=== PATIENT | male | born 1995 | race Caucasian/White ===

== ENCOUNTER 2016-10-08 17:16 | Emergency (ER) | payer SELFPAY ==
[~2016-10-08] VITALS: Ht 170.2 cm; Wt 122.5 kg
[~2016-10-08 17:16] MED LIST: AMPH20CA3 PO
[2016-10-08] MEDS ORDERED: IBUPROFEN 800 MG (MOTRIN) TAB PO ONE ×2 (18:03→18:15)
--- NOTE | 2016-10-08 18:15 | ED Fever ---
History of Present Illness General Stated Complaint: HEADACHE/COUGH/SORE THROAT Source: patient Exam Limitations: no limitations History of Present Illness Time seen by provider: 18:09 Initial Comments To ER with today being the third day of runny nose, sore throat, headache, fever and cough. Timing/Duration: getting worse Fever Quality: greater than 102 F Associated Symptoms: headache Allergies and Home Medications Allergies Coded Allergies: No Known Drug Allergies (Unverified , 03/22/11) Home Medications No Active Prescriptions or Reported Meds Constitutional: see HPI EENTM: see HPI Respiratory: no symptoms reported Cardiovascular: no symptoms reported Genitourinary: no symptoms reported Musculoskeletal: no symptoms reported Skin: no symptoms reported Psychiatric/Neurological: No Symptoms Reported Hematologic/Lymphatic: No Symptoms Reported Past Htszlkv-Usnnfy-Adnemh Hx Patient Social History Recent Foreign Travel: No Contact w/Someone Who Travel: No Physical Exam Vital Signs Vital Sign - Last 12Hours 10/08/16 18:00 Temp 103.4 Pulse 148 B/P 122/72 Pulse Ox 99 O2 Flow Rate 99 Capillary Refill : General Appearance: WD/WN no apparent distress Eyes: Bilateral Eye EOMI, Bilateral Eye Normal Inspection, Bilateral Eye PERRL HEENT: PERRL/EOMI normal ENT inspection TM abnormal (R) (red) pharyngeal erythema Neck: non-tender Respiratory: lungs clear normal breath sounds no respiratory distress no accessory muscle use Gastrointestinal: non tender soft Extremities: normal range of motion non-tender Neurologic/Psychiatric: alert normal mood/affect oriented x 3 Skin: normal color warm/dry Progress/Results/Core Measures Results/Orders Micro Results Microbiology 10/08/16 Influenza Types A,B Antigen (PAULA) - Final, Complete My Orders Orders-CHAR VIDAL APRN Influenza A And B Antigens (10/08/16 18:08) Ibuprofen Tablet (Motrin Tablet) (10/08/16 18:15) Ibuprofen Tablet (Motrin Tablet) (10/08/16 18:03) Medications Given in ED Current Medications Medications Dose Ordered Sig/Sharita Route Start Time Stop Time Status Last Admin Dose Admin Ibuprofen 800 mg ONCE ONCE PO 10/08/16 18:15 10/08/16 18:16 DC 10/08/16 18:15 800 MG Vital Signs/I&O Vital Sign - Last 12Hours 10/08/16 18:00 Temp 103.4 Pulse 148 B/P 122/72 Pulse Ox 99 O2 Flow Rate 99 Departure Impression Impression: Primary Impression: Influenza-like symptoms Disposition: 01 HOME, SELF-CARE Condition: Stable Departure-Patient Inst. Decision time for Depature: 18:16 Referrals: NO,LOCAL PHYSICIAN (PCP/Family) Primary Care Physician Patient Instructions: Flu Add. Discharge Instructions: 1. Tylenol and Motrin for aches and pains and fevers 2. Drink lots of liquids. Gatorade and water would be your best bet. Use over -the-counter cough and cold medications like NyQuil or DayQuil 3. Return to ER for any concerns Scripts No Active Prescriptions or Reported Meds Work/School Note: Work Release Form Date Seen in the Emergency Department: Oct 08, 2016 Return to Work: Oct 11, 2016 CHAR VIDAL APRN Oct 08, 2016 18:15
[2016-10-08 18:50] VITALS: BP 124/74
--- NOTE | 2016-10-08 18:53 | Diagnostic Imaging Report ---
INDICATION: Cough and shortness of breath x 2 days. EXAMINATION: Two views of the chest were obtained. COMPARISON: None. Baseline. FINDINGS: The lungs are well aerated. There are no infiltrates present. The heart is not enlarged. No pulmonary edema. No pneumothorax or pleural effusions. No bony abnormalities. IMPRESSION: Normal PA and lateral chest. Dictated by: Dictated on workstation # [id number]
== END 2016-10-08 18:50 | disposition home or self-care (01) ==
LOC: EDUNIT# 17:16 → ER 17:18
DX: J11.1 Influenza due to unidentified influenza virus with other respiratory manifestations (principal)
CPT/HCPCS: 71020; 87804; 99282

== ENCOUNTER 2016-11-09 16:42 | Emergency (ER) | payer SELFPAY ==
[~2016-11-09] VITALS: Ht 170.2 cm; Wt 95.3 kg
--- OUTSIDE RECORDS SUMMARY | 2016-11-09 16:48 | XMS REPORT | Continuity of Care Document ---
Author Author [facility] Organization [facility] Address Unknown Phone Unavailable Care Team Providers Care Canteen Operator Name Role Phone NO, LOCAL PHYSICIAN PCP Unavailable Insurance Providers Payer Name Policy Number Subscriber Name Relationship Self Pay Silas Multani 18 Self / Same As Patient Advance Directives Directive Response Recorded Date/Time Advance Directives No 10/08/16 6:00pm Health Care Power of Tag Stringer No 10/08/16 6:00pm Organ Donor Yes 10/08/16 6:00pm Resuscitation Status Full Code 10/08/16 6:00pm Chief Complaint and Reason for Visit Chief Complaint Cough/Cold/Flu Symptoms Reason for Visit Influenza-like symptoms Problems Active Problems Medical Problem Onset Date Status Influenza-like symptoms Unknown Acute Medications No known medications. Social History Social History Problem Response Recorded Date/Time Alcohol Use Denies Use 10/08/2016 6:00pm Recreational Drug Use No 10/08/2016 6:00pm Recent Foreign Travel No 10/08/2016 6:00pm Recent Infectious Disease Exposure No 10/08/2016 6:00pm Hospitalization with Isolation Denies 10/08/2016 6:00pm Smoking Status Never a Smoker 10/08/2016 6:00pm Recent Hopitalizations N PT STATES NO MEDICAL HX 10/08/2016 6:00pm Hospitalization with Isolation Denies 10/08/2016 6:00pm Query Response Start Date Stop Date Smoking Status Never a Smoker Hospital Discharge Instructions No hospital discharge instructions. Plan of Care Discharge Date 10/08/16 6:50pm Disposition 01 HOME, SELF-CARE Condition at Discharge Stable Instructions/Education Provided Flu Forms Provided Work Release Form Prescriptions See Medication Section Referrals NO,LOCAL PHYSICIAN - Primary Care Physician Additional Instructions/Education 1. Tylenol and Motrin for aches and pains and fevers 2. Drink lots of liquids. Gatorade and water would be your best bet. Use idad-iwl-qxbduve cough and cold medications like NyQuil or DayQuil 3. Return to ER for any concerns Functional Status No functional status results. Allergies, Adverse Reactions, Alerts No known allergies. Immunizations No immunization records. Vital Signs Acute Vital Signs Vital Response Date/Time Temperature (Fahrenheit) 103.4 degrees F (97.6 - 99.5) 10/08/2016 6:00pm Temperature (Calculated Celsius) 39.59964 degrees C (36.4 - 37.5) 10/08/2016 6:00pm Temperature Source Tympanic 10/08/2016 6:00pm Pulse Rate (adult) 148 bpm (60 - 90) 10/08/2016 6:00pm O2 Sat by Pulse Oximetry 99 % (88 - 100) 10/08/2016 6:00pm Blood Pressure 122/72 mm Hg 10/08/2016 6:00pm Blood Pressure Mean 89 mm Hg 10/08/2016 6:00pm Pain Numeric Pain Scale 3 10/08/2016 6:00pm Height (Feet) 5 feet 10/08/2016 6:00pm Height (Inches) 7 inches 10/08/2016 6:00pm Height (Calculated Centimeters) 170.841532 cm 10/08/2016 6:00pm Weight (Pounds) 270 pounds 10/08/2016 6:00pm Weight (Calculated Kilograms) 122.616343 kilograms 10/08/2016 6:00pm Capillary Refill Capillary Refill NONE 10/08/2016 6:00pm Height 5 ft 7 in Weight 270 lb Body Mass Index 42.3 kg/m^2 Results No known relevant diagnostic tests, laboratory data and/or discharge summary. Procedures No known history of procedures. Encounters Encounter Location Arrival/Admit Date Discharge/Depart Date Attending Provider Departed Emergency Room [facility] 10/08/16 5:18pm 10/08 6:50pm CHAR VIDAL APRN Recent Diagnosis
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
[2016-11-09] MEDS ORDERED: KETOROLAC 60 MG/2 ML VIAL IM ONE ×2 (17:30→17:49)
[2016-11-09] MEDS ORDERED: LIDOCAINE/EPI 1%-1:100,000 (XYLOCAINE) 20ML INJ ONE (17:30)
[2016-11-09] MEDS ORDERED: ORPHENADRINE 60 MG/2 ML (NORFLEX) AMP IM ONE (17:30)
[2016-11-09 17:46] LABS: BASOPHILS % (AUTO) 0 % (0-10); EOSINOPHILS # (AUTO) 0.1 10^3/uL (0.0-0.3); EOSINOPHILS % (AUTO) 2 % (0-10); LYMPHOCYTES # (AUTO) 0.7 X 10^3 (1.0-4.0); LYMPHOCYTES % (AUTO) 11 % (12-44); MEAN CORPUSCULAR HEMOGLOBIN 30 PG (25-34); MEAN CORPUSCULAR HGB CONC 35 G/DL (32-36); MEAN CORPUSCULAR VOLUME 86 FL (80-99); MEAN PLATELET VOLUME 9.4 FL (7.4-10.4); MONOCYTES # (AUTO) 0.8 X 10^3 (0.0-1.0); MONOCYTES % (AUTO) 12 % (0-12); NEUTROPHILS # (AUTO) 5.2 X 10^3 (1.8-7.8); NEUTROPHILS % (AUTO) 76 % (42-75); PLATELET COUNT 239 10^3/uL (130-400); RED BLOOD COUNT 5.13 10^6/uL (4.35-5.85); RED CELL DISTRIBUTION WIDTH 13.7 % (10.0-14.5); WHITE BLOOD COUNT 6.8 10^3/uL (4.3-11.0)
[2016-11-09 17:48] LABS: BILIRUBIN,URINE NEGATIVE (NEGATIVE); KETONES,URINE NEGATIVE (NEGATIVE); LEUKOCYTE ESTERASE ,URINE NEGATIVE (NEGATIVE); NITRITE,URINE NEGATIVE (NEGATIVE); PH,URINE 6 (5-9); PROTEIN,URINE NEGATIVE (NEGATIVE); UROBILINOGEN,URINE NORMAL (NORMAL)
[2016-11-09] MEDS ORDERED: LIDOCAINE/EPI 1%-1:100,000 (XYLOCAINE) 20ML ONE (17:50)
[2016-11-09] MEDS ORDERED: ORPHENADRINE 60 MG/2 ML (NORFLEX) AMP ONE (17:50)
[2016-11-09 17:58] LABS: SQUAMOUS EPITHELIAL CELL,UR 0-2 /HPF; WBC,URINE RARE /HPF
[2016-11-09] MEDS ORDERED: ACETAMINOPHEN 500 MG TAB (TYLENOL) PO ONE (18:00)
--- NOTE | 2016-11-09 18:08 | Diagnostic Imaging Report ---
PROCEDURE: CT lumbar spine without contrast. TECHNIQUE: Multiple contiguous axial images were obtained through the lumbar spine without the use of intravenous contrast. Sagittal and coronal reformations were then performed. INDICATION: Back pain after trauma COMPARISON: None available. FINDINGS: Lumbar spine is normal in alignment. Specifically, there is no traumatic subluxation. Intervertebral disc space heights are normal. Vertebral bodies are normal in height without compression deformity. Posterior elements are intact. Visualized portions of the retroperitoneum are unremarkable. Visible SI joints are normal. IMPRESSION: 1. Normal lumbar spine. Specifically, no acute fracture or traumatic subluxation. Dictated by: Dictated on workstation # [id number]
[2016-11-09] MEDS ORDERED: SULF1TAB35 PO (18:14)
[2016-11-09] MEDS ORDERED: METR500T PO (18:14)
[2016-11-09] MEDS ORDERED: HYDR-757 PO (18:14)
[2016-11-09] MEDS ORDERED: CLOT15CR4 TP (18:14)
[2016-11-09 18:15] VITALS: BP 132/90
== END 2016-11-09 18:40 | disposition home or self-care (01) ==
LOC: EDUNIT# 16:42 → ER 16:44
DX: L30.4 Erythema intertrigo (principal); S30.0XXA Contusion of lower back and pelvis, initial encounter; L05.01 Pilonidal cyst with abscess; R50.9 Fever, unspecified; W24.0XXA Contact with lifting devices, not elsewhere classified, initial encounter; Y92.59 Other trade areas as the place of occurrence of the external cause; Y99.0 Civilian activity done for income or pay
CPT/HCPCS: 10060; 36415; 72131; 81000; 85025; 87070; 87205; 87804; 96372

== ENCOUNTER 2017-03-12 16:10 | Emergency (ER) | payer SELFPAY ==
[~2017-03-12] VITALS: Ht 170.2 cm; Wt 121.1 kg
[~2017-03-12 16:10] MED LIST changes: +CLOT15CR4 TP; +HYDR-757 PO; +METR500T PO; +SULF1TAB35 PO
[2017-03-12] MEDS ORDERED: CIPR500T4 PO (16:56)
[2017-03-12] MEDS ORDERED: HYDR-3812 PO (16:56)
[2017-03-12] MEDS ORDERED: METR500T21 PO (16:56)
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
[2017-03-12 17:09] VITALS: BP 142/79
== END 2017-03-12 17:09 | disposition home or self-care (01) ==
LOC: EDUNIT# 16:10 → ER 16:12
DX: L02.31 Cutaneous abscess of buttock (principal)
CPT/HCPCS: 99282

== ENCOUNTER 2017-06-04 16:08 | Emergency (ER) | payer SELFPAY ==
[~2017-06-04] VITALS: Ht 170.2 cm; Wt 121.1 kg
[~2017-06-04 16:08] MED LIST changes: +CIPR500T4 PO; +HYDR-3812 PO; +METR500T21 PO
[2017-06-04 16:23] LABS: BASOPHILS % (AUTO) 0 % (0-10); EOSINOPHILS # (AUTO) 0.4 10^3/uL (0.0-0.3); EOSINOPHILS % (AUTO) 5 % (0-10); LYMPHOCYTES # (AUTO) 1.9 X 10^3 (1.0-4.0); LYMPHOCYTES % (AUTO) 25 % (12-44); MEAN CORPUSCULAR HEMOGLOBIN 30 PG (25-34); MEAN CORPUSCULAR HGB CONC 34 G/DL (32-36); MEAN CORPUSCULAR VOLUME 86 FL (80-99); MEAN PLATELET VOLUME 9.5 FL (7.4-10.4); MONOCYTES # (AUTO) 0.8 X 10^3 (0.0-1.0); MONOCYTES % (AUTO) 10 % (0-12); NEUTROPHILS # (AUTO) 4.6 X 10^3 (1.8-7.8); NEUTROPHILS % (AUTO) 60 % (42-75); PLATELET COUNT 296 10^3/uL (130-400); RED BLOOD COUNT 5.25 10^6/uL (4.35-5.85); RED CELL DISTRIBUTION WIDTH 13.1 % (10.0-14.5); WHITE BLOOD COUNT 7.7 10^3/uL (4.3-11.0)
[2017-06-04] MEDS ORDERED: ONDANSETRON 4 MG/2 ML (SDV) Z0FRAN IVP ONE (16:30)
[2017-06-04] MEDS ORDERED: NS IV 1000 ML 1,000 ML IV SCH (16:30)
--- NOTE | 2017-06-04 16:30 | ED GI ---
General Chief Complaint: Abdominal/GI Problems Stated Complaint: VOMITING Source of Information: Patient Exam Limitations: No Limitations History of Present Illness Time Seen By Provider: 16:29 Initial Comments To ER with reports of nausea vomiting and diarrhea since last night. Denies abdominal pain. Denies fevers or chills. He went to work today but had to leave early because of this nausea and vomiting. He also scheduled to work tonight again at 2 a.m. He states that his son who is a toddler is also getting over nausea vomiting and diarrhea. Timing/Duration: 12-24 Hours Severity/Quality: Moderate Location: Generalized Abdomen Activities at Onset: None Allergies and Home Medications Allergies Coded Allergies: No Known Drug Allergies (Unverified , 03/22/11) Home Medications Ciprofloxacin HCl 500 Mg Tablet, 500 MG PO BID, #20 Ref 0 Prescribed by: SINDHU COOK on 03/12/171655 Hydrocodone/Acetaminophen 1 Each Tablet, 1 EACH PO Q4H PRN for PAIN, #14 Ref 0 Prescribed by: SINDHU COOK on 03/12/171655 Metronidazole 500 Mg Tablet, 500 MG PO TID, #30 Ref 0 Prescribed by: SINDHU COOK on 03/12/171655 Review of Systems Constitutional: see HPI EENTM: No Symptoms Reported Respiratory: No Symptoms Reported Cardiovascular: No Symptoms Reported Gastrointestinal: See HPI, Abdominal Pain, Diarrhea, Nausea, Vomiting Genitourinary: No Symptoms Reported Musculoskeletal: no symptoms reported Skin: no symptoms reported Psychiatric/Neurological: No Symptoms Reported Endocrine: No Symptoms Reported Past Yqwnozt-Tmpfzx-Cqftkv Hx Patient Social History Recent Foreign Travel: No Contact w/Someone Who Travel: No Recent Hopitalizations: No (PT STATES NO MEDICAL HX) Seasonal Allergies Seasonal Allergies: No Surgeries History of Surgeries: No Respiratory History of Respiratory Disorde: No Cardiovascular History of Cardiac Disorders: No Neurological History of Neurological Disord: No Reproductive System Hx Reproductive Disorders: No Gastrointestinal History of Gastrointestinal Di: No Musculoskeletal History of Musculoskeletal Dis: No Endocrine History of Endocrine Disorders: No Cancer History of Cancer: No Psychosocial History of Psychiatric Problem: No Integumentary History of Skin or Integumenta: No Blood Transfusions History of Blood Disorders: No Family Medical History Significant Family History: No Pertinent Family Hx Physical Exam Vital Signs Capillary Refill : General Appearance: WD/WN, no apparent distress HEENT: PERRL/EOMI, normal ENT inspection Neck: non-tender, full range of motion Respiratory: normal breath sounds, no respiratory distress, no accessory muscle use Cardiovascular: regular rate, rhythm, no murmur Gastrointestinal: normal bowel sounds, non tender, soft Extremities: normal range of motion, non-tender, normal inspection Neurologic/Psychiatric: alert, normal mood/affect, oriented x 3 Skin: normal color, warm/dry Progress/Results/Core Measures Results/Orders Lab Results Laboratory Tests Test 06/04/17 16:18 06/04/17 16:41 Range/Units White Blood Count 7.7 4.3-11.0 10^3/uL Red Blood Count 5.25 4.35-5.85 10^6/uL Hemoglobin 15.6 13.3-17.7 G/DL Hematocrit 45 40-54 % Mean Corpuscular Volume 86 80-99 FL Mean Corpuscular Hemoglobin 30 25-34 PG Mean Corpuscular Hemoglobin Concent 34 32-36 G/DL Red Cell Distribution Width 13.1 10.0-14.5 % Platelet Count 296 130-400 10^3/uL Mean Platelet Volume 9.5 7.4-10.4 FL Neutrophils (%) (Auto) 60 42-75 % Lymphocytes (%) (Auto) 25 12-44 % Monocytes (%) (Auto) 10 0-12 % Eosinophils (%) (Auto) 5 0-10 % Basophils (%) (Auto) 0 0-10 % Neutrophils # (Auto) 4.6 1.8-7.8 X 10^3 Lymphocytes # (Auto) 1.9 1.0-4.0 X 10^3 Monocytes # (Auto) 0.8 0.0-1.0 X 10^3 Eosinophils # (Auto) 0.4 H 0.0-0.3 10^3/uL Basophils # (Auto) 0.0 0.0-0.1 10^3/uL Sodium Level 142 135-145 MMOL/L Potassium Level 3.5 L 3.6-5.0 MMOL/L Chloride Level 105 98-107 MMOL/L Carbon Dioxide Level 28 21-32 MMOL/L Anion Gap 9 5-14 MMOL/L Blood Urea Nitrogen 12 7-18 MG/DL Creatinine 0.90 0.60-1.30 MG/DL Estimat Glomerular Filtration Rate > 60 BUN/Creatinine Ratio 13 Glucose Level 84 70-105 MG/DL Calcium Level 9.1 8.5-10.1 MG/DL Total Bilirubin 0.5 0.1-1.0 MG/DL Aspartate Amino Transf (AST/SGOT) 23 5-34 U/L Alanine Aminotransferase (ALT/SGPT) 54 0-55 U/L Alkaline Phosphatase 101 40-136 U/L Total Protein 7.2 6.4-8.2 GM/DL Albumin 4.1 3.2-4.5 GM/DL Lipase 11 8-78 U/L Urine Color YELLOW Urine Clarity SLIGHTLY CLOUDY Urine pH 6 5-9 Urine Specific [place] 1.020 1.016-1.022 Urine Protein 1+ H NEGATIVE Urine Glucose (UA) NEGATIVE NEGATIVE Urine Ketones NEGATIVE NEGATIVE Urine Nitrite NEGATIVE NEGATIVE Urine Bilirubin NEGATIVE NEGATIVE Urine Urobilinogen 4 H NORMAL MG/DL Urine Leukocyte Esterase 1+ H NEGATIVE Urine RBC (Auto) NEGATIVE NEGATIVE Urine RBC NONE /HPF Urine WBC 2-5 /HPF Urine Squamous Epithelial Cells 2-5 /HPF Urine Crystals NONE /LPF Urine Bacteria NONE /HPF Urine Casts NONE /LPF Urine Mucus SMALL H /LPF Urine Culture Indicated NO My Orders Orders - CHAR VIDAL APRN Cbc With Automated Diff (06/04/17 16:12) Comprehensive Metabolic Panel (06/04/17 16:12) Lipase (06/04/17 16:12) Ua Culture If Indicated (06/04/17 16:12) Drug Screen Stat (Urine) (06/04/17 16:12) Saline Lock/Iv-Start (06/04/17 16:12) Ns Iv 1000 Ml (Sodium Chloride 0.9%) (06/04/17 16:30) Ondansetron Injection (Zofran Injectio (06/04/17 16:30) Medications Given in ED Current Medications Medications Dose Ordered Sig/Sharita Route Start Time Stop Time Status Last Admin Dose Admin Ondansetron HCl 4 mg ONCE ONCE IVP 06/04/17 16:30 06/04/17 16:31 DC 06/04/17 16:25 4 MG Departure Impression Impression: Primary Impression: Nausea vomiting and diarrhea Disposition: 01 HOME, SELF-CARE Condition: Stable Departure-Patient Inst. Decision time for Depature: 16:58 Referrals: JOSE ROBERTO RIVAS DO (PCP/Family) Primary Care Physician Patient Instructions: Nausea and Vomiting, Adult Add. Discharge Instructions: 1. Drink plenty of fluids to stay hydrated. 2. Nausea medication as needed 3. See her doctor next week All discharge instructions reviewed with patient and/or family. Voiced understanding. Scripts Ondansetron (Zofran Odt) 8 Mg Tab.rapdis 8 MG PO Q6H Y for NAUSEA/VOMITING-1ST LINE, #10 TAB Prov: CHAR VIDAL APRN 06/04/17 Work/School Note: Work Release Form Date Seen in the Emergency Department: Jun 04, 2017 Return to Work: Jun 06, 2017 CHAR VIDAL APRN Jun 04, 2017 16:30
[2017-06-04 16:42] LABS: ALANINE AMINOTRANSFERASE 54 U/L (0-55); ALBUMIN 4.1 GM/DL (3.2-4.5); ANION GAP 9 MMOL/L (5-14); ASPARTATE AMINO TRANSFERASE 23 U/L (5-34); BILIRUBIN,TOTAL 0.5 MG/DL (0.1-1.0); BLOOD UREA NITROGEN 12 MG/DL (7-18); BUN/CREATININE RATIO 13; CALCIUM 9.1 MG/DL (8.5-10.1); CARBON DIOXIDE 28 MMOL/L (21-32); CHLORIDE 105 MMOL/L (98-107); GFR ESTIMATED > 60; GLUCOSE 84 MG/DL (70-105); LIPASE 11 U/L (8-78); POTASSIUM 3.5 MMOL/L (3.6-5.0); SODIUM 142 MMOL/L (135-145); TOTAL PROTEIN 7.2 GM/DL (6.4-8.2)
[2017-06-04 16:48] LABS: BILIRUBIN,URINE NEGATIVE (NEGATIVE); KETONES,URINE NEGATIVE (NEGATIVE); LEUKOCYTE ESTERASE ,URINE 1+ (NEGATIVE); NITRITE,URINE NEGATIVE (NEGATIVE); PH,URINE 6 (5-9); PROTEIN,URINE 1+ (NEGATIVE); UROBILINOGEN,URINE 4 MG/DL (NORMAL)
[2017-06-04] MEDS ORDERED: ONDA8TAB9 PO (17:00)
[2017-06-04 17:20] VITALS: BP 116/74
== END 2017-06-04 17:20 | disposition home or self-care (01) ==
LOC: EDUNIT# 16:08 → ER 16:09
DX: R11.2 Nausea with vomiting, unspecified (principal); R19.7 Diarrhea, unspecified
CPT/HCPCS: 36415; 80053; 80306; 81000; 83690; 85025; 99282

== ENCOUNTER 2018-01-04 20:41 | Emergency (ER) | payer SELFPAY ==
[~2018-01-04] VITALS: Ht 170.2 cm; Wt 127.0 kg
[~2018-01-04 20:41] MED LIST changes: +ACHD5005 PO; -HYDR-3812 PO; +ONDA8TAB9 PO
--- NOTE | 2018-01-04 20:55 | ED Upper Extremity ---
General Chief Complaint: Upper Extremity Stated Complaint: R WRIST INJ Nursing Triage Note: Patient reports shutting R wrist back in door. Nursing Sepsis Screen: No Definite Risk Source: patient Exam Limitations: no limitations History of Present Illness Date Seen by Provider: Jan 04, 2018 Time Seen by Provider: 20:54 Initial Comments Ambulatory to ER with reports of pain to the right wrist after accidentally shutting it in his door at home. Onset: just prior to arrival Severity: moderate Pain/Injury Location: right wrist Method of Injury: direct blow Modifying Factors: Worse With Movement Allergies and Home Medications Allergies Coded Allergies: No Known Drug Allergies (Unverified , 03/22/11) Patient Home Medication List Home Medication List Reviewed: Yes Constitutional: see HPI EENTM: see HPI Respiratory: no symptoms reported Cardiovascular: no symptoms reported Genitourinary: no symptoms reported Musculoskeletal: see HPI Skin: no symptoms reported Psychiatric/Neurological: No Symptoms Reported Past Iizabca-Hgiqmz-Mevzvt Hx Patient Social History Alcohol Use: Denies Use Recreational Drug Use: No Recent Foreign Travel: No Contact w/Someone Who Travel: No Recent Infectious Disease Expo: No Recent Hopitalizations: No Physical Abuse: No Sexual Abuse: No Seasonal Allergies Seasonal Allergies: No Past Medical History Surgeries: No Respiratory: No Cardiac: No Neurological: No Reproductive Disorders: No Gastrointestinal: No Musculoskeletal: No Endocrine: No Cancer: No Psychosocial: No Nursing Suicide Risk Score: 0 Integumentary: No Blood Disorders: No Family Medical History No Pertinent Family Hx Physical Exam Vital Signs Vital Signs - First Documented 01/04/18 20:47 Temp 98.0 Pulse 93 Resp 20 B/P (MAP) 133/70 (91) Pulse Ox 97 Capillary Refill : Less Than 3 Seconds General Appearance: WD/WN, no apparent distress HEENT: PERRL/EOMI, normal ENT inspection Neck: non-tender, full range of motion Respiratory: normal breath sounds, no respiratory distress, no accessory muscle use Gastrointestinal: normal bowel sounds, non tender Shoulder: normal inspection, non-tender Elbow/Forearm: normal inspection, non-tender Wrist: Yes normal inspection, Yes normal ROM, Yes soft tissue tenderness ( Small amount of erythema to the volar aspect of the right wrist. No deformity or swelling or ecchymosis.) Neurologic/Psychiatric: alert, normal mood/affect, oriented x 3 Skin: normal color, warm/dry Progress/Results/Core Measures My Orders Orders - CHAR VIDAL APRN Wrist, Right, 3 Views Or More (01/04/18 20:52) Vital Signs/I&O 01/04/18 20:47 Temp 98.0 Pulse 93 Resp 20 B/P (MAP) 133/70 (91) Pulse Ox 97 Blood Pressure Mean: 91 Departure Impression Primary Impression: Contusion of wrist Disposition: 01 HOME, SELF-CARE Condition: Stable Departure-Patient Inst. Decision time for Depature: 20:55 Referrals: NO,LOCAL PHYSICIAN (PCP/Family) Primary Care Physician Patient Instructions: Contusion (DC) Add. Discharge Instructions: 1. Tylenol and Motrin for pain 2. Return here for any concerns 3. All discharge instructions reviewed with patient and/or family. Voiced understanding. CHAR VIDAL APRN Jan 04, 2018 20:55
--- NOTE | 2018-01-04 21:25 | Diagnostic Imaging Report ---
INDICATION: Right wrist injury FINDINGS: Three views of the right wrist show no fracture, dislocation or other acute abnormalities. IMPRESSION: Negative right wrist. Dictated by: Dictated on workstation # [id number]
[2018-01-04 21:29] VITALS: BP 133/70
== END 2018-01-04 21:29 | disposition home or self-care (01) ==
LOC: EDUNIT# 20:41 → ER 20:43
DX: S60.211A Contusion of right wrist, initial encounter (principal); W23.0XXA Caught, crushed, jammed, or pinched between moving objects, initial encounter; Y92.009 Unspecified place in unspecified non-institutional (private) residence as the place of occurrence of the external cause
CPT/HCPCS: 73110

== ENCOUNTER 2018-01-09 03:02 | Emergency (ER) | payer SELFPAY ==
[~2018-01-09] VITALS: Ht 170.2 cm; Wt 127.0 kg
[2018-01-09] MEDS ORDERED: RX-TRIMETH/SULFA. 160-800 MG (BACTRIM DS) TAB PPK#2 PO STA (03:24)
[2018-01-09] MEDS ORDERED: RX-NAPROXEN (NAPROSYN) 250 MG TAB PPK#4 PO STA (03:24)
[2018-01-09] MEDS ORDERED: SULF1TAB35 PO (03:27)
[2018-01-09] MEDS ORDERED: NAPR-915 PO (03:27)
--- NOTE | 2018-01-09 03:27 | ED Integumentary General ---
General Chief Complaint: Skin/Wound Problems Stated Complaint: CYST UNDER RT ARM PIT,PAINFUL Nursing Triage Note: AREA OF CONCERN RIGHT AXILLA. Source: patient, old records Exam Limitations: no limitations History of Present Illness Date Seen by Provider: Jan 09, 2018 Time Seen by Provider: 03:15 Initial Comments PT ARRIVES VIA POV C/O PAINFUL "LUMP" IN RIGHT ARMPIT X 1 WEEK STATES HE HAD TO LEAVE WORK TONIGHT BECAUSE IT WAS HURTING TO RAISE AND LOWER HIS ARMS--WORKS AT [employer]) NO DRAINAGE NO FEVER NO HISTORY OF SIMILAR, PER PT, BUT PER OLD RECORDS, PT HAS HAD ABSCESS ON BUTTOCK IN PAST Allergies and Home Medications Allergies Coded Allergies: No Known Drug Allergies (Unverified , 03/22/11) Home Medications Naproxen 500 Mg Tablet, 500 MG PO BID Prescribed by: SARAI SAMS on 01/09/18326 Sulfamethoxazole/Trimethoprim 1 Each Tablet, 1 EACH PO BID Prescribed by: SARAI SAMS on 01/09/18326 Patient Home Medication List Home Medication List Reviewed: Yes Constitutional: no symptoms reported Respiratory: no symptoms reported Cardiovascular: no symptoms reported Musculoskeletal: see HPI Skin: see HPI Psychiatric/Neurological: No Symptoms Reported Endocrine: No Symptoms Reported Hematologic/Lymphatic: No Symptoms Reported Past Spjanhw-Jyyzux-Ipwuyp Hx Patient Social History Alcohol Use: Denies Use Recreational Drug Use: No Smoking Status: Never a Smoker 2nd Hand Smoke Exposure: No Recent Foreign Travel: No Contact w/Someone Who Travel: No Recent Infectious Disease Expo: No Recent Hopitalizations: No Immunizations Up To Date Tetanus Booster (TDap): Unknown Seasonal Allergies Seasonal Allergies: No Past Medical History Surgeries: No Respiratory: No Cardiac: No Neurological: No Reproductive Disorders: No Genitourinary: No Gastrointestinal: No Musculoskeletal: No Endocrine: No HEENT: No Cancer: No Psychosocial: No Integumentary: Yes (ABSCESS ON BUTTOCK) Blood Disorders: No Family Medical History No Pertinent Family Hx Physical Exam Vital Signs Vital Signs - First Documented 01/09/18 03:05 Temp 98.2 Pulse 99 Resp 18 B/P (MAP) 148/91 (110) Pulse Ox 95 O2 Delivery Room Air Capillary Refill : Less Than 3 Seconds General Appearance: WD/WN, no apparent distress, obese, other (DOES NOT APPEAR TO BE IN ANY DISCOMFORT OR DISTRESS, FREELY MOVING RIGHT ARM ) Extremities: normal range of motion, normal capillary refill 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 NO ERYTHEMA, INDURATION, DRAINAGE, STREAKS OR WARMTH. NO AXILLARY ADENOPATHY OR OTHER LESIONS/NODULES/SKIN CHANGES. ) Progress/Results/Core Measures My Orders Orders - SARAI SAMS DO Rx-Trimeth/Sulfameth Ds Tab (Rx-Bactrim/ (01/09/18 03:24) Rx-Naproxen (Rx-Naprosyn) (01/09/18 03:24) Vital Signs/I&O 01/09/18 03:05 Temp 98.2 Pulse 99 Resp 18 B/P (MAP) 148/91 (110) Pulse Ox 95 O2 Delivery Room Air Blood Pressure Mean: 110 Departure Impression Primary Impression: Folliculitis of axilla Disposition: 01 HOME, SELF-CARE Condition: Stable Departure-Patient Inst. Referrals: JOSE ROBERTO RIVAS DO Patient Instructions: Folliculitis (DC) Add. Discharge Instructions: CLEAN AREA TWICE A DAY WITH ANTIBACTERIAL SOAP AND WATER, ALTERNATE ICE AND HEAT TO AREA AT 20 MINUTE INTERVALS DO NOT SQUEEZE, PICK AT OR POKE AREA FOLLOW UP WITH DR. RIVAS IN 3-4 DAYS IF NO BETTER All discharge instructions reviewed with patient and/or family. Voiced understanding. Scripts Naproxen (Naproxen) 500 Mg Tablet 500 MG PO BID, #20 TAB Prov: SARAI SAMS DO 01/09/18 Sulfamethoxazole/Trimethoprim (Bactrim Ds Tablet) 1 Each Tablet 1 EACH PO BID, #20 TAB Prov: SARAI SAMS DO 01/09/18 SARAI SAMS DO Jan 09, 2018 03:27
[2018-01-09 03:30] VITALS: BP 148/91
== END 2018-01-09 03:30 | disposition home or self-care (01) ==
LOC: EDUNIT# 03:02 → ER 03:05
DX: L73.9 Follicular disorder, unspecified (principal); Z87.2 Personal history of diseases of the skin and subcutaneous tissue
CPT/HCPCS: 99283

== ENCOUNTER 2018-04-09 14:18 | Emergency (ER) | payer OTHER ==
[~2018-04-09] VITALS: Ht 170.2 cm; Wt 127.0 kg
[~2018-04-09 14:18] MED LIST changes: +NAPR-915 PO
--- NOTE | 2018-04-09 15:24 | ED Upper Extremity ---
General Chief Complaint: Upper Extremity Stated Complaint: RT SHOULDER AND NECK PAIN Nursing Triage Note: AMB TO ROOM REPORTS WAS AT WORK A MONTH AGO PICKING UP PALLET WHEN HE STARTED HAVING PAIN IN L SHOLDER WITH RADIATION INTO NECK HAD NOT TAKEN ANY OTC PAIN MEDS Nursing Sepsis Screen: No Definite Risk Source: patient Exam Limitations: no limitations History of Present Illness Date Seen by Provider: Apr 09, 2018 Time Seen by Provider: 15:05 Initial Comments Here with report of right shoulder strain. States that he was throwing pallets at work approximately a month ago and had pain started afterwards in the shoulder. Patient has muscle spasms along the top of the shoulder from this shoulder proper to the neck. Denies weakness or sensation loss to the right arm. Tried ibuprofen once and that didn't help much. Sent here for occupational health evaluation. Onset: other (1 month) Severity: mild, moderate Pain/Injury Location: right shoulder Method of Injury: other (lifting) Modifying Factors: Improves With Immobilization; Worse With Movement Allergies and Home Medications Allergies Coded Allergies: No Known Drug Allergies (Unverified , 03/22/11) Patient Home Medication List Home Medication List Reviewed: Yes Constitutional: see HPI; No chills, No fever Respiratory: no symptoms reported Cardiovascular: no symptoms reported Musculoskeletal: joint pain, muscle pain, muscle stiffness Skin: no symptoms reported Psychiatric/Neurological: No Symptoms Reported Past Phtncue-Pkeeoh-Ujsvnm Hx Past Med/Social Hx: Reviewed Nursing Past Med/Soc Hx Patient Social History Alcohol Use: Denies Use Recreational Drug Use: No 2nd Hand Smoke Exposure: No Recent Foreign Travel: No Contact w/Someone Who Travel: No Recent Infectious Disease Expo: No Recent Hopitalizations: No Immunizations Up To Date Tetanus Booster (TDap): Unknown Seasonal Allergies Seasonal Allergies: No Past Medical History Surgeries: No Respiratory: No Cardiac: No Neurological: No Reproductive Disorders: No Genitourinary: No Gastrointestinal: No Musculoskeletal: No Endocrine: No HEENT: No Cancer: No Psychosocial: No Integumentary: Yes (ABSCESS ON BUTTOCK) Blood Disorders: No Family Medical History Reviewed Nursing Family Hx No Pertinent Family Hx Physical Exam Vital Signs Vital Signs - First Documented 04/09/18 14:22 Temp 99.0 Pulse 85 B/P (MAP) 130/81 (97) O2 Delivery Room Air Capillary Refill : Less Than 3 Seconds Height, Weight, BMI Height: 5'7.00" Weight: 280lbs. oz. 127.928699gx; BMI Method:Stated General Appearance: WD/WN, no apparent distress Cardiovascular: regular rate, rhythm, no murmur Respiratory: lungs clear, normal breath sounds Shoulder: limited ROM, pain, soft tissue tenderness (pain along these appear aspect of the shoulder and the connection between the posterior-superior muscle of the shoulder to the neck. Spasm noted in this area. Range of mildly motion limited due to pain.) Hand: normal inspection, non-tender, no evidence of injury, normal ROM, Right Neurologic/Tendon: normal motor functions Neurologic/Psychiatric: no motor/sensory deficits, alert, oriented x 3 Skin: normal color, warm/dry Progress/Results/Core Measures Results/Orders Vital Signs/I&O 04/09/18 14:22 Temp 99.0 Pulse 85 B/P (MAP) 130/81 (97) O2 Delivery Room Air Blood Pressure Mean: 97 Progress Progress Note : Progress Note Seen and evaluated. Discharged home with return precautions. Patient verbalize understanding instructions and agreement with plan. Departure Impression Primary Impression: Right shoulder strain Qualified Codes: S46.911A - Strain of unspecified muscle, fascia and tendon at shoulder and upper arm level, right arm, initial encounter Disposition: 01 HOME, SELF-CARE Condition: Stable Departure-Patient Inst. Decision time for Depature: 15:25 Referrals: JOSE ROBERTO RIVAS DO (PCP/Family) Primary Care Physician Patient Instructions: Muscle Strain (DC) Add. Discharge Instructions: All discharge instructions reviewed with patient and/or family. Voiced understanding. Follow-up with occupational health after ED visit. You should take ibuprofen 800 mg every 8 hours as needed for pain. You should do this for the next 3 days and then as needed. You may also take Tylenol/acetaminophen 1000 mg every 8 hours as needed for pain. You may use icy hot with lidocaine patches or similar preparations to area of concern per package directions. Return for worse pain, weakness, swelling or other concerns as needed. MARGARET CERDA MD Apr 09, 2018 15:24
[2018-04-09 15:31] VITALS: BP 130/81
== END 2018-04-09 15:29 | disposition home or self-care (01) ==
LOC: EDUNIT# 14:18 → ER 14:20
DX: S46.911A Strain of unspecified muscle, fascia and tendon at shoulder and upper arm level, right arm, initial encounter (principal); X50.0XXA Overexertion from strenuous movement or load, initial encounter; Y99.0 Civilian activity done for income or pay
CPT/HCPCS: 99282

== ENCOUNTER 2018-05-10 20:05 | Emergency (ER) | payer SELFPAY ==
[~2018-05-10] VITALS: Ht 170.2 cm; Wt 127.0 kg
[2018-05-10] MEDS ORDERED: CEPH-507 PO (20:19)
--- NOTE | 2018-05-10 20:21 | ED Integumentary General ---
General Chief Complaint: Skin/Wound Problems Stated Complaint: LEG WOUND Nursing Triage Note: right posterior distal leg rash x1 day Source: patient, other Exam Limitations: no limitations History of Present Illness Date Seen by Provider: May 10, 2018 Time Seen by Provider: 20:15 Initial Comments Patient presents to ER by private conveyance with a chief complaint that today he noticed some blistering on his left lower extremity that it started up after having some itching and burning today and he sprayed some kind of a poison nabil salve on it. He denies any fevers chills burning or itching but he does have a little rash on his right upper arm and he says he has been out running [place] lately. No one else around him has similar rash. He has no other medical history. Allergies and Home Medications Allergies Coded Allergies: No Known Drug Allergies (Unverified , 03/22/11) Home Medications No Active Prescriptions or Reported Meds Patient Home Medication List Home Medication List Reviewed: Yes Constitutional: No chills, No diaphoresis EENTM: No ear discharge, No ear pain Respiratory: No cough, No phlegm Cardiovascular: No chest pain, No palpitations Past Dnyhduk-Kbfbvl-Ipuloc Hx Patient Social History Alcohol Use: Occasionally Uses Recreational Drug Use: No Smoking Status: Never a Smoker 2nd Hand Smoke Exposure: No Recent Foreign Travel: No Contact w/Someone Who Travel: No Recent Infectious Disease Expo: No Recent Hopitalizations: No Immunizations Up To Date Tetanus Booster (TDap): Unknown Seasonal Allergies Seasonal Allergies: No Past Medical History Surgeries: No Respiratory: No Cardiac: No Neurological: No Reproductive Disorders: No Genitourinary: No Gastrointestinal: No Musculoskeletal: No Endocrine: No HEENT: No Cancer: No Psychosocial: No Integumentary: Yes (ABSCESS ON BUTTOCK) Blood Disorders: No Family Medical History No Pertinent Family Hx Physical Exam Vital Signs Vital Signs - First Documented 05/10/18 20:10 Temp 97.7 Pulse 81 Resp 16 B/P (MAP) 132/75 (94) Pulse Ox 96 O2 Delivery Room Air Capillary Refill : Less Than 3 Seconds General Appearance: WD/WN, no apparent distress Cardiovascular: normal peripheral pulses, regular rate, rhythm Neurologic/Psychiatric: alert, oriented x 3 Skin: other (a few small bullae over an area of erythematous, abraded skin on the right lower extremity calf consistent with contact dermatitis and underlying cellulitis.) Progress/Results/Core Measures Results/Orders Vital Signs/I&O 05/10/18 20:10 Temp 97.7 Pulse 81 Resp 16 B/P (MAP) 132/75 (94) Pulse Ox 96 O2 Delivery Room Air Blood Pressure Mean: 94 Progress Progress Note : Time: 20:20 Progress Note He says the bullae did not start until after he sprayed it with the topical Benadryl. He could have an allergy to that are could be stinging metals or other delayed onset contact dermatitis. We'll cover him with some Keflex for the next 5 days. Departure Impression Primary Impression: Contact dermatitis Additional Impression: Cellulitis Disposition: HOME, SELF-CARE Condition: Stable Departure-Patient Inst. Decision time for Depature: 20:17 Referrals: JOSE ROBERTO RIVAS DO (PCP/Family) Primary Care Physician Patient Instructions: Contact Dermatitis (DC) Add. Discharge Instructions: Keep the wound clean and dry. You can apply Vaseline over the open skin areas as well as a Band-Aid or dressing. For the healed skin you can use drying agents such as calamine lotion. Avoid topical Benadryl. If you have itching use Zyrtec or Claritin one to 2 tablets daily. Return to the doctor if you begin to have nausea fever or chills. 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 All discharge instructions reviewed with patient and/or family. Voiced understanding. Scripts Cephalexin (Keflex) 500 Mg Capsule 500 MG PO TID for 5 Days, #15 CAP 0 Refills Prov: RUT LEOS 05/10/18 RUT LEOS May 10, 2018 20:21
[2018-05-10 20:23] VITALS: BP 132/75
== END 2018-05-10 20:23 | disposition home or self-care (01) ==
LOC: EDUNIT# 20:05 → ER 20:06
DX: L03.116 Cellulitis of left lower limb (principal); L25.9 Unspecified contact dermatitis, unspecified cause
CPT/HCPCS: 99282

== ENCOUNTER 2018-08-20 14:40 | Emergency (ER) | payer SELFPAY ==
[~2018-08-20] VITALS: Ht 170.2 cm; Wt 127.0 kg
[~2018-08-20 14:40] MED LIST changes: +CEPH-507 PO; +HYDR-4226 PO; -HYDR-757 PO; +METR-197 PO; -METR500T21 PO
[2018-08-20] MEDS ORDERED: ACETAMINOPHEN 500 MG TAB (TYLENOL) PO STA (15:18)
--- NOTE | 2018-08-20 15:36 | ED EENT ---
History of Present Illness General Chief Complaint: Oral/Throat Problems Stated Complaint: SORE THROAT Nursing Triage Note: PT CO OF [facility] APPROX 3 DAYS AGO HAS HAD A FEVER History of Present Illness Date Seen by Provider: Aug 20, 2018 Time Seen by Provider: 15:15 Initial Comments When he 2-year-old male presents for sore throat and earache. He states his symptoms of been present for 3 days. He took ibuprofen 2 days ago with no resolution of his symptoms and has not taken anything else over-the- counter. His last ear infection was proximally 3 years ago he does not recall being evaluated for strep pharyngitis. Timing/Duration: yesterday Location: ear (R), ear (L), throat Prearrival Treatment: no prearrival treatment Associated Symptoms: cough; No ear drainage, No facial pain/swelling, No fever ; malaise, nasal congestion/drainage, sore throat; No voice change Allergies and Home Medications Allergies Coded Allergies: No Known Drug Allergies (Unverified , 03/22/11) Home Medications Cefdinir 300 Mg Capsule, 300 MG PO BID Prescribed by: AMARA ROSAS on 08/20/18 1537 Patient Home Medication List Home Medication List Reviewed: Yes Review of Systems Review of Systems Constitutional: no symptoms reported, see HPI Ears: See HPI, Pain Throat: see HPI, pain All Other Systems Reviewed Negative Unless Noted: Yes Past Deelkpe-Vhrmfq-Jrlnam Hx Past Med/Social Hx: Reviewed Nursing Past Med/Soc Hx Patient Social History Alcohol Use: Occasionally Uses Recreational Drug Use: No Smoking Status: Never a Smoker 2nd Hand Smoke Exposure: No Recent Foreign Travel: No Contact w/Someone Who Travel: No Recent Infectious Disease Expo: No Recent Hopitalizations: No Immunizations Up To Date Tetanus Booster (TDap): Unknown Seasonal Allergies Seasonal Allergies: No Past Medical History Surgeries: No Respiratory: No Cardiac: No Neurological: No Reproductive Disorders: No Genitourinary: No Gastrointestinal: No Musculoskeletal: No Endocrine: No HEENT: No Cancer: No Psychosocial: No Integumentary: Yes (ABSCESS ON BUTTOCK) Blood Disorders: No Family Medical History No Pertinent Family Hx Physical Exam Vital Signs Vital Signs - First Documented 08/20/18 14:50 Temp 97.4 Pulse 73 Resp 18 B/P (MAP) 134/83 (100) Pulse Ox 94 O2 Delivery Room Air Height, Weight, BMI Height: 5'7.00" Weight: 280lbs. oz. 127.880543az; BMI Method:Stated General Appearance: WD/WN, no apparent distress Eyes: bilateral eye normal inspection, bilateral eye PERRL, bilateral eye EOMI Ears: bilateral ear auricle normal, bilateral ear canal normal, bilateral ear TM dull, bilateral ear TM red Nose: normal inspection, discharge (clear to purulent) Mouth/Throat: normal mouth inspection, pharynx normal, pharynx tenderness; No tonsillar exudate, No tonsillar swelling Neck: non-tender, full range of motion, supple, normal inspection; No lymphadenopathy (R), No lymphadenopathy (L) Cardiovascular: normal peripheral pulses, no murmur Respiratory: chest non-tender, lungs clear, normal breath sounds Gastrointestinal: normal bowel sounds, non tender, soft Neurologic/Psychiatric: no motor/sensory deficits, alert, normal mood/affect, oriented x 3 Skin: normal color, warm/dry; No rash Progress/Results/Core Measures Results/Orders Lab Results Laboratory Tests Test 08/20/18 14:50 Range/Units Group A Streptococcus Screen NEGATIVE NEGATIVE My Orders Orders - AMARA ROSAS Rapid Strep A Screen (08/20/18 14:42) Acetaminophen Tablet (Tylenol Tablet) (08/20/18 15:18) Vital Signs/I&O 08/20/18 08/20/18 14:50 15:51 Temp 97.4 97.4 Pulse 73 73 Resp 18 18 B/P (MAP) 134/83 (100) 134/83 (100) Pulse Ox 94 94 O2 Delivery Room Air Blood Pressure Mean: 100 Departure Impression Primary Impression: Otitis media Qualified Codes: H66.003 - Acute suppurative otitis media without spontaneous rupture of ear drum, bilateral Additional Impression: Viral upper respiratory infection Disposition: HOME, SELF-CARE Condition: Improved Departure-Patient Inst. Decision time for Depature: 15:30 Referrals: JOSE ROBERTO RIVAS DO (PCP/Family) Primary Care Physician Patient Instructions: Ear Infections (Otitis Media) (DC), Viral Pharyngitis ( DC) Add. Discharge Instructions: Take antibiotic as directed. Salt water gargles every 2 hours while awake. Alternate between Tylenol 650 mg and ibuprofen 600 mg every 4 hours for pain or fever Use Afrin nasal spray, as directed for 3 days then discontinue. Follow-up with your primary care provider if symptoms are not improving or worsen. Return to emergency department for acute, emergent health care problems. All discharge instructions reviewed with patient and/or family. Voiced understanding. Scripts Cefdinir (Cefdinir) 300 Mg Capsule 300 MG PO BID, #14 CAP 0 Refills Prov: AMARA ROSAS 08/20/18 AMARA ROSAS Aug 20, 2018 15:36
[2018-08-20] MEDS ORDERED: CEFD300C3 PO (15:37)
[2018-08-20 15:51] VITALS: BP 134/83
== END 2018-08-20 15:51 | disposition home or self-care (01) ==
LOC: EDUNIT# 14:40 → ER 14:41
DX: J06.9 Acute upper respiratory infection, unspecified (principal); H66.93 Otitis media, unspecified, bilateral
CPT/HCPCS: 87430; 99284

== ENCOUNTER 2018-08-21 22:46 | Emergency (ER) | payer SELFPAY ==
[~2018-08-21] VITALS: Ht 170.2 cm; Wt 127.0 kg
[~2018-08-21 22:46] MED LIST changes: +CEFD300C3 PO
[2018-08-21] MEDS ORDERED: ONDANSETRON 4 MG/2 ML (SDV) Z0FRAN ONE (23:23)
[2018-08-22 00:04] LABS: AMPHETAMINE SCREEN, URINE NEGATIVE (NEGATIVE); BACTERIA,URINE TRACE /HPF; BARBITURATE SCREEN URINE NEGATIVE (NEGATIVE); BENZODIAZEPINES SCREEN URINE NEGATIVE (NEGATIVE); BILIRUBIN,URINE NEGATIVE (NEGATIVE); CANNABINOID SCREEN, URINE NEGATIVE (NEGATIVE); CLARITY,URINE CLEAR; COCAINE SCREEN URINE NEGATIVE (NEGATIVE); COLOR,URINE YELLOW; GLUCOSE, URINE (UA) NEGATIVE (NEGATIVE); KETONES,URINE NEGATIVE (NEGATIVE); LEUKOCYTE ESTERASE ,URINE NEGATIVE (NEGATIVE); METHADONE STAT NEGATIVE (NEGATIVE); METHAMPHETAMINE SCREEN URINE S NEGATIVE (NEGATIVE); NITRITE,URINE NEGATIVE (NEGATIVE); OPIATE SCREEN URINE NEGATIVE (NEGATIVE); OXYCODONE STAT NEGATIVE (NEGATIVE); PH,URINE 5 (5-9); PROPOXYPHENE STAT NEGATIVE (NEGATIVE); PROTEIN,URINE NEGATIVE (NEGATIVE); TRICYCLIC ANTIDEPRESSANTS SCRE NEGATIVE (NEGATIVE); UROBILINOGEN,URINE NORMAL (NORMAL); WBC,URINE RARE /HPF
[2018-08-22] MEDS ORDERED: LACTATED RINGERS 1,000 ML IV ONE ×2 (00:07→00:58)
[2018-08-22 00:09] LABS: CARBON DIOXIDE 22 MMOL/L (21-32); CHLORIDE 105 MMOL/L (98-107); POTASSIUM 4.4 MMOL/L (3.6-5.0); SODIUM 143 MMOL/L (135-145)
[2018-08-22 00:10] LABS: ALANINE AMINOTRANSFERASE 62 U/L (0-55); ALBUMIN 4.5 GM/DL (3.2-4.5); ALKALINE PHOSPHATASE 120 U/L (40-136); AMYLASE 37 U/L (25-125); BILIRUBIN,TOTAL 0.7 MG/DL (0.1-1.0); BUN/CREATININE RATIO 19; CALCIUM 9.6 MG/DL (8.5-10.1); CREATININE SERUM 1.01 MG/DL (0.60-1.30); GFR ESTIMATED > 60; GLUCOSE 87 MG/DL (70-105); LIPASE 10 U/L (8-78); TOTAL PROTEIN 7.8 GM/DL (6.4-8.2)
[2018-08-22 00:11] LABS: HEMATOCRIT 46 % (40-54); HEMOGLOBIN 16.5 G/DL (13.3-17.7); MEAN CORPUSCULAR HEMOGLOBIN 31 PG (25-34); MEAN CORPUSCULAR HGB CONC 36 G/DL (32-36); MEAN CORPUSCULAR VOLUME 86 FL (80-99); RED BLOOD COUNT 5.35 10^6/uL (4.35-5.85); WHITE BLOOD COUNT 12.9 10^3/uL (4.3-11.0)
[2018-08-22 00:12] LABS: BASOPHILS % (AUTO) 0 % (0-10); EOSINOPHILS # (AUTO) 0.3 10^3/uL (0.0-0.3); EOSINOPHILS % (AUTO) 2 % (0-10); LYMPHOCYTES # (AUTO) 1.1 X 10^3 (1.0-4.0); LYMPHOCYTES % (AUTO) 9 % (12-44); MEAN PLATELET VOLUME 9.5 FL (7.4-10.4); MONOCYTES # (AUTO) 0.7 X 10^3 (0.0-1.0); MONOCYTES % (AUTO) 6 % (0-12); NEUTROPHILS # (AUTO) 10.7 X 10^3 (1.8-7.8); NEUTROPHILS % (AUTO) 83 % (42-75); PLATELET COUNT 366 10^3/uL (130-400); RED CELL DISTRIBUTION WIDTH 13.4 % (10.0-14.5)
[2018-08-22] MEDS ORDERED: ONDANSETRON 4 MG/2 ML (SDV) Z0FRAN IVP ONE (00:15)
[2018-08-22] MEDS ORDERED: ACETAMINOPHEN 500 MG TAB (TYLENOL) PO ONE (00:15)
[2018-08-22] MEDS ORDERED: IBUPROFEN 800 MG (MOTRIN) TAB PO ONE (00:15)
--- NOTE | 2018-08-22 01:14 | ED General ---
General Chief Complaint: General Problems/Pain Stated Complaint: CHEST PAIN Nursing Triage Note: PT AMB TO ROOM 35 W/O DIFFICULTY. A&OX4. C/O CHEST DISCOMFORT, NAUSEA, VOMITING , AND DIARRHEA. PT REPORTS SORE THROAT BEGAN APPROX X4 DAYS AGO. REPORTS THIS AM, BEGAN TO VOMIT APPROX 30 TIMES WELL DIARRHEA APPROX 4 TIMES. PT REPORTS APPROX 1 HR PRIOR TO ARRIVAL IN ED PT BEGAN TO FORCEFULLY VOMIT RESULTING IN PT PASSING OUT AND LANDING INTO A PILE OF LEAVES. 4MM PERRLA. INITIAL TYMPANIC TEMP 100.5. S/O @ BEDSIDE. Nursing Sepsis Screen: Possible Sepsis Risk Source of Information: Patient (VAGUE, SOMEWHAT DIFFICULT HISTORIAN) History of Present Illness Date Seen by Provider: Aug 21, 2018 Time Seen by Provider: 23:00 Initial Comments PT ARRIVES VIA POV PT STATES "DON'T FEEL GOOD" PT HAS MULTIPLE COMPLAINTS--STATES "IN EVERY WAY IMAGINABLE" "MY CHEST AND ME VOMITING AND ME PASSING OUT" PT STATES HE HAS HAD A SORE THROAT AND STUFFY NOSE FOR 4 DAYS HAS HAD A NON-PRODUCTIVE COUGH X 4 DAYS STATES HE STARTED VOMITING AROUND 1600 TODAY--STATES HE HAS VOMITED " AT LEAST 30 TIMES" AND NOW IS DRY HEAVING HAS HAD DIARRHEA X 4 AND STATES "CRAPPED MY MY PANTS EVERY TIME" STATES AN HOUR AGO, HE WAS VOMITING/DRY HEAVING SO HARD HE PASSED OUT--WAS OUTSIDE AT THE TIME, AND WENT FORWARD ON HIS KNEES AND FELL FORWARD INTO A PILE OF LEAVES, WITH HEAD LANDING IN THE PILE OF LEAVES STATES HE WAS OUT FOR ABOUT 30 SECONDS--WAS WITNESSED BY FEMALE S.O. AND HIS FATHER. STATES HE HAS HAD THIS SAME THING HAPPEN "CLOSE TO 10 TIMES" BEFORE WHEN HE HAS VOMITED, AND THIS IS NO DIFFERENT. DID NOT SEEK CARE ON THOSE PREVIOUS OCCASIONS STATES HIS CHEST HAS BEEN HURTING SINCE HE PASSED OUT--CHEST LANDED ON PILE OF LEAVES ALSO. PT STATES HE HAS NOT EATEN SINCE THIS AFTERNOON--HAD CHEESEBURGER, FRIES AND A DRINK AROUND 1230--STATES HE DID NOT FEEL WELL THEN, BUT HE ATE ANYWAY. STATES HE HAS BEEN ABLE TO KEEP SPRITE DOWN, AND IS WANTING SPRITE SOON HE ARRIVES PT MARY ANNE HE HAS BEEN URINATING A NORMAL AMOUNT DENIES ABDOMINAL PAIN NO SUSPICIOUS FOODS, BUT OTHER FAMILY MEMBERS WITH SAME. PT WAS SEEN HERE 08/20/18 FOR EAR PAIN AND DX WITH OTITIS MEDIA AND GIVEN RX FOR CEFDINIR. PT HAS HAD MULTIPLE VISITS FOR VARIOUS COMPLAINTS--6 VISITS IN 2018. PCP: DR. RIVAS IN PAST Allergies and Home Medications Allergies Coded Allergies: No Known Drug Allergies (Unverified , 03/22/11) Home Medications Cefdinir 300 Mg Capsule, 300 MG PO BID Prescribed by: AMARA ROSAS on 08/20/18 1887 Ondansetron HCl 4 Mg Tab, 4 MG PO Q4H Prescribed by: SARAI SAMS on 08/22/18 0151 Patient Home Medication List Home Medication List Reviewed: Yes Review of Systems Review of Systems Constitutional: see HPI; No dizziness; fever, malaise, weakness EENTM: see HPI, nose congestion, throat pain; No ear pain Respiratory: see HPI, cough; No short of breath, No wheezing Cardiovascular: see HPI, chest pain; No edema, No palpitations; syncope; No vascular heart diseas Gastrointestinal: see HPI; No abdominal pain; diarrhea, loss of appetite, nausea, vomiting Genitourinary: No decreased output Musculoskeletal: see HPI Skin: see HPI, other (VERY MINOR ABRASIONS TO KNEES. ) Psychiatric/Neurological: See HPI; Denies Headache, Denies Numbness, Denies Paresthesia, Denies Seizure, Denies Tingling, Denies Tremors, Denies Weakness Hematologic/Lymphatic: No Symptoms Reported Immunological/Allergic: no symptoms reported Past Yxuhvug-Wrolzo-Eejrok Hx Patient Social History Alcohol Use: Occasionally Uses Alcohol Beverage of Choice: Beer Recreational Drug Use: No Smoking Status: Current Everyday Smoker Type Used: Cigarettes 2nd Hand Smoke Exposure: No Recent Foreign Travel: No Contact w/Someone Who Travel: No Recent Infectious Disease Expo: No Recent Hopitalizations: No Physical Abuse: No Sexual Abuse: No Immunizations Up To Date Tetanus Booster (TDap): Unknown Seasonal Allergies Seasonal Allergies: No Past Medical History Surgeries: No Respiratory: No Cardiac: No Neurological: No Reproductive Disorders: No Genitourinary: No Gastrointestinal: No Musculoskeletal: No Endocrine: No HEENT: No Cancer: No Psychosocial: No Integumentary: Yes (ABSCESS ON BUTTOCK) Blood Disorders: No Family Medical History No Pertinent Family Hx Physical Exam Vital Signs Vital Signs - First Documented 08/21/18 22:46 Temp 100.5 Pulse 130 Resp 20 B/P (MAP) 131/86 (101) Pulse Ox 100 O2 Delivery Room Air Capillary Refill : Less Than 3 Seconds Height, Weight, BMI Height: 5'7.00" Weight: 280lbs. oz. 127.346779qw; BMI Method:Stated General Appearance: No Apparent Distress, Obese, Other (SOMEWHAT HOSTILE, DOES NOT MAKE EYE CONTACT, TEXTING /PLAYING ON PHONE THROUGHOUT ENTIRE STAY, FEMALE S.O IN ROOM WITH PT, DIRTY, MALODOROUS. ) HEENT: PERRL/EOMI, Other (POOR DENTITION; TM'S INFLAMED AND SCLEROTIC BILATERALLY. ) Neck: Normal Inspection Respiratory: Normal Breath Sounds, No Accessory Muscle Use, No Respiratory Distress, Other (MID ANTERIOR CHEST TENDER TO PALPATION--MILD) Cardiovascular: No Edema, No JVD, No Murmur, Normal Peripheral Pulses, Tachycardia (130 ON ARRIVAL) Gastrointestinal: Normal Bowel Sounds, No Organomegaly, No Pulsatile Mass, Non Tender, Soft Back: No CVA Tenderness Extremity: Normal Capillary Refill, Normal Range of Motion, Non Tender, No Calf Tenderness, No Pedal Edema Neurologic/Psychiatric: Alert, Oriented x3, No Motor/Sensory Deficits, medical librarian II- XII Norm as Tested Skin: Normal Color, Warm/Dry, Other (VERY MINOR ABRASIONS TO KNEES. ) Focused Exam Lactate Level 08/21/18 23:10: Lactic Acid Level 1.39 Lactic Acid Level Progress/Results/Core Measures Suspected Sepsis Recent Fever Within 48 Hours: Yes Infection Criteria Present: Suspected New Infection New/Unexplained Altered Menta: No Sepsis Screen: Possible Sepsis Risk SIRS Temperature:100.5 Pulse: 130 Respiratory Rate: 20 Laboratory Tests 08/21/18 23:10: White Blood Count 12.9H Blood Pressure 131 /86 Mean: 101 08/21/18 23:10: Lactic Acid Level 1.39 Laboratory Tests 08/21/18 23:10: Platelet Count 366 08/21/18 23:18: Creatinine 1.01, Total Bilirubin 0.7 Results/Orders Lab Results Laboratory Tests Test 08/21/18 23:10 08/21/18 23:18 Range/Units White Blood Count 12.9 H 4.3-11.0 10^3/uL Red Blood Count 5.35 4.35-5.85 10^6/uL Hemoglobin 16.5 13.3-17.7 G/DL Hematocrit 46 40-54 % Mean Corpuscular Volume 86 80-99 FL Mean Corpuscular Hemoglobin 31 25-34 PG Mean Corpuscular Hemoglobin Concent 36 32-36 G/DL Red Cell Distribution Width 13.4 10.0-14.5 % Platelet Count 366 130-400 10^3/uL Mean Platelet Volume 9.5 7.4-10.4 FL Neutrophils (%) (Auto) 83 H 42-75 % Lymphocytes (%) (Auto) 9 L 12-44 % Monocytes (%) (Auto) 6 0-12 % Eosinophils (%) (Auto) 2 0-10 % Basophils (%) (Auto) 0 0-10 % Neutrophils # (Auto) 10.7 H 1.8-7.8 X 10^3 Lymphocytes # (Auto) 1.1 1.0-4.0 X 10^3 Monocytes # (Auto) 0.7 0.0-1.0 X 10^3 Eosinophils # (Auto) 0.3 0.0-0.3 10^3/uL Basophils # (Auto) 0.0 0.0-0.1 10^3/uL Lactic Acid Level 1.39 0.50-2.00 MMOL/L Urine Color YELLOW Urine Clarity CLEAR Urine pH 5 5-9 Urine Specific [place] 1.020 1.016-1.022 Urine Protein NEGATIVE NEGATIVE Urine Glucose (UA) NEGATIVE NEGATIVE Urine Ketones NEGATIVE NEGATIVE Urine Nitrite NEGATIVE NEGATIVE Urine Bilirubin NEGATIVE NEGATIVE Urine Urobilinogen NORMAL NORMAL MG/DL Urine Leukocyte Esterase NEGATIVE NEGATIVE Urine RBC (Auto) NEGATIVE NEGATIVE Urine RBC NONE /HPF Urine WBC RARE /HPF Urine Squamous Epithelial Cells 2-5 /HPF Urine Crystals NONE /LPF Urine Bacteria TRACE /HPF Urine Casts NONE /LPF Urine Mucus MODERATE H /LPF Urine Culture Indicated NO Sodium Level 143 135-145 MMOL/L Potassium Level 4.4 3.6-5.0 MMOL/L Chloride Level 105 98-107 MMOL/L Carbon Dioxide Level 22 21-32 MMOL/L Anion Gap 16 H 5-14 MMOL/L Blood Urea Nitrogen 19 H 7-18 MG/DL Creatinine 1.01 0.60-1.30 MG/DL Estimat Glomerular Filtration Rate > 60 BUN/Creatinine Ratio 19 Glucose Level 87 70-105 MG/DL Calcium Level 9.6 8.5-10.1 MG/DL Corrected Calcium 9.2 8.5-10.1 MG/DL Total Bilirubin 0.7 0.1-1.0 MG/DL Aspartate Amino Transf (AST/SGOT) 30 5-34 U/L Alanine Aminotransferase (ALT/SGPT) 62 H 0-55 U/L Alkaline Phosphatase 120 40-136 U/L Total Protein 7.8 6.4-8.2 GM/DL Albumin 4.5 3.2-4.5 GM/DL Amylase Level 37 25-125 U/L Lipase 10 8-78 U/L Urine Opiates Screen NEGATIVE NEGATIVE Urine Oxycodone Screen NEGATIVE NEGATIVE Urine Methadone Screen NEGATIVE NEGATIVE Urine Propoxyphene Screen NEGATIVE NEGATIVE Urine Barbiturates Screen NEGATIVE NEGATIVE Ur Tricyclic Antidepressants Screen NEGATIVE NEGATIVE Urine Phencyclidine Screen NEGATIVE NEGATIVE Urine Amphetamines Screen NEGATIVE NEGATIVE Urine Methamphetamines Screen NEGATIVE NEGATIVE Urine Benzodiazepines Screen NEGATIVE NEGATIVE Urine Cocaine Screen NEGATIVE NEGATIVE Urine Cannabinoids Screen NEGATIVE NEGATIVE Serum Alcohol < 10 <10 MG/DL Micro Results Microbiology 08/21/18 Influenza Types A,B Antigen (PAULA) - Final, Complete My Orders Orders - SARAI SAMS DO Chest Pa/Lat (2 View) (08/21/18 ) Ct Head Wo (08/21/18 ) Cbc With Automated Diff (08/21/18 23:57) Alcohol (08/21/18 23:57) Amylase (08/21/18 23:57) Comprehensive Metabolic Panel (08/21/18 23:57) Lipase (08/21/18 23:57) Drug Screen Stat (Urine) (08/21/18 23:57) Urinalysis (08/21/18 23:57) Lactic Acid Analyzer (08/21/18 23:57) Influenza A And B Antigens (08/21/18 23:57) Blood Culture (08/21/18 23:59) Blood Culture (08/22/18 00:00) Acetaminophen Tablet (Tylenol Tablet) (08/22/18 00:15) Ibuprofen Tablet (Motrin Tablet) (08/22/18 00:15) Ondansetron Injection (Zofran Injectio (08/22/18 00:15) Saline Lock/Iv-Start (08/22/18 00:07) Lactated Ringers (Lr 1000 Ml Iv Solution (08/22/18 00:07) Saline Lock/Iv-Start (08/22/18 00:58) Lactated Ringers (Lr 1000 Ml Iv Solution (08/22/18 00:58) Medications Given in ED Current Medications Medications Dose Ordered Sig/Sharita Route Start Time Stop Time Status Last Admin Dose Admin Acetaminophen 1,000 mg ONCE ONCE PO 08/22/18 00:15 08/22/18 00:16 DC 08/22/18 00:14 1,000 MG Ibuprofen 800 mg ONCE ONCE PO 08/22/18 00:15 08/22/18 00:16 DC 08/22/18 00:14 800 MG Lactated Ringer's 1,000 ml @ 0 mls/hr Q0M ONCE IV 08/22/18 00:07 08/22/18 00:09 DC 08/22/18 00:14 0 MLS/HR Lactated Ringer's 1,000 ml @ 0 mls/hr Q0M ONCE IV 08/22/18 00:58 08/22/18 02:07 DC 08/22/18 01:06 0 MLS/HR Ondansetron HCl 8 mg ONCE ONCE IVP 08/22/18 00:15 08/22/18 00:16 DC 08/21/18 23:26 8 MG Vital Signs/I&O 08/21/18 08/22/18 22:46 02:05 Temp 100.5 99.8 Pulse 130 89 Resp 20 20 B/P (MAP) 131/86 (101) 107/82 (90) Pulse Ox 100 100 O2 Delivery Room Air Room Air Capillary Refill : Less Than 3 Seconds Blood Pressure Mean: 101 Progress Note : Progress Note NAUSEA RESOLVED WITH MEDICATIONS PT TOLERATING ICE CHIPS AND WATER NO VOMITING OR DIARRHEA DURING ER STAY NO C/O CHEST PAIN FOR REMAINDER OF ER STAY TEMP DOWN WITH MEDICATIONS HEART RATE DOWN AT DISMISSAL. VITALS STABLE. NO DETERIORATION IN PT'S CONDITION DURING ER STAY ECG Initial ECG Impression Date: Aug 21, 2018 Initial ECG Impression Time: 22:47 Initial ECG Rate: 117 Initial ECG Rhythm: S.Tach Initial ECG Comparisson: No Previous ECG Available Diagnostic Imaging Comments CXR--NO ACUTE PROCESS, PENDING RADIOLOGIST REVIEW CT HEAD--NO ACUTE PROCESS, MILD MUCOSAL THICKENING OF MAXILLARY SINUSES. PER [facility] VIA FAX AT [phone] Reviewed: Reviewed by Me Departure Impression Primary Impression: Gastroenteritis Additional Impressions: VASOVAGAL SYNCOPE SECONDARY TO VOMITING Mild dehydration Minor head injury Anterior chest wall pain Bilateral otitis media Upper respiratory infection Disposition: HOME, SELF-CARE Condition: Improved Departure-Patient Inst. Referrals: JOSE ROBERTO RIVAS DO (PCP/Family) Primary Care Physician Patient Instructions: Chest Pain That Is Not Caused by the Heart (DC), Dehydration, Adult (DC), [id number], Minor Head Injury (DC), Vasovagal Response (DC) Add. Discharge Instructions: CLEAR LIQUIDS, SIPS AT A TIME--WATER, BROTH, JELLO, GATORADE TOMORROW IF YOU ARE BETTER, ADD BRATS DIET TO CLEAR LIQUIDS--BANANAS, RICE, APPLESAUCE, TOAST, SALTINES TYLENOL AND MOTRIN NEEDED FOR PAIN OR FEVER. FOLLOW UP WITH YOUR DR IN 1-2 DAYS IF NO BETTER, RETURN TO ER IF WORSE All discharge instructions reviewed with patient and/or family. Voiced understanding. Scripts Ondansetron HCl (Zofran) 4 Mg Tab 4 MG PO Q4H for Nausea/Vomiting, #10 TAB Prov: SARAI SAMS DO 08/22/18 SARAI SAMS DO Aug 22, 2018 01:14
[2018-08-22] MEDS ORDERED: ONDN4T PO (01:51)
[2018-08-22 02:05] VITALS: BP 107/82
--- NOTE | 2018-08-22 07:15 | Diagnostic Imaging Report ---
PROCEDURE: CT head without contrast. TECHNIQUE: Multiple contiguous axial images were obtained through the brain without the use of intravenous contrast. INDICATION: Headache The ventricles are normal in size, shape and position. There is no mass or hemorrhage. There are no extra-axial fluid collections. There is minimal membrane thickening in the maxillary sinuses. IMPRESSION: Mild maxillary sinus inflammatory disease. CT head otherwise unremarkable. I agree with preliminary interpretation. Dictated by: Dictated on workstation # [id number]
--- NOTE | 2018-08-22 07:15 | Diagnostic Imaging Report ---
INDICATION: Chest pain PA and lateral chest Heart size and pulmonary vascularity are normal. Lungs are clear. There are no effusions or pneumothoraces. IMPRESSION: Negative chest Dictated by: Dictated on workstation # [id number]
== END 2018-08-22 02:06 | disposition home or self-care (01) ==
LOC: EDUNIT# 22:46 → ER 22:46
DX: S09.90XA Unspecified injury of head, initial encounter (principal); R07.89 Other chest pain; H66.93 Otitis media, unspecified, bilateral; J06.9 Acute upper respiratory infection, unspecified; K52.9 Noninfective gastroenteritis and colitis, unspecified; R55 Syncope and collapse; E86.0 Dehydration; F17.210 Nicotine dependence, cigarettes, uncomplicated; W18.30XA Fall on same level, unspecified, initial encounter
CPT/HCPCS: 36415; 70450; 71046; 80053; 80306; 80320; 81000; 82150; 83605; 83690; 85025; 87040; 87804; 93005; 96361; 96374

== ENCOUNTER 2019-11-14 11:35 | Emergency (ER) | payer SELFPAY ==
[~2019-11-14] VITALS: Ht 170 cm; Wt 134.0 kg
[~2019-11-14 11:35] MED LIST changes: +METR-145 PO; -METR-197 PO; +ONDN4T PO
--- NOTE | 2019-11-14 11:50 | ED EENT ---
History of Present Illness General Chief Complaint: Dental Problems/Pain Stated Complaint: DENTAL PAIN/SWELLING Nursing Triage Note: LEFT DENTAL PAIN AND SWELLING X3 DAYS. Source: patient Exam Limitations: no limitations History of Present Illness Date Seen by Provider: Nov 14, 2019 Time Seen by Provider: 11:49 Initial Comments Left lower dental pain for 3 days swelling symptoms today. With [facility] and got his jaw numbed recently with preparation for tooth extraction that day, he wanted all of his teeth pulled but they were only going to pull a few he left without having any of them pulled. Timing/Duration: this morning Severity: moderate Associated Symptoms: tooth pain Allergies and Home Medications Allergies Coded Allergies: No Known Drug Allergies (Unverified , 03/22/11) Home Medications No Active Prescriptions or Reported Meds Patient Home Medication List Home Medication List Reviewed: Yes Review of Systems Review of Systems Constitutional: see HPI Eyes: No Symptoms Reported Ears: No Symptoms Reported Nose: no symptoms reported Mouth: see HPI Throat: no symptoms reported Respiratory: no symptoms reported Musculoskeletal: no symptoms reported Skin: no symptoms reported Neurological: No Symptoms Reported Past Iwjydnl-Yyfrsz-Okwflv Hx Patient Social History Alcohol Use: Denies Use Alcohol Beverage of Choice: Beer Recreational Drug Use: No Smoking Status: Never a Smoker Type Used: Cigarettes 2nd Hand Smoke Exposure: No Recent Foreign Travel: No Contact w/Someone Who Travel: No Recent Infectious Disease Expo: No Recent Hopitalizations: No Immunizations Up To Date Tetanus Booster (TDap): Unknown Seasonal Allergies Seasonal Allergies: No Past Medical History Surgeries: No Respiratory: No Cardiac: No Neurological: No Reproductive Disorders: No Genitourinary: No Gastrointestinal: No Musculoskeletal: No Endocrine: No HEENT: No Cancer: No Psychosocial: No Integumentary: Yes (ABSCESS ON BUTTOCK) Blood Disorders: No Family Medical History No Pertinent Family Hx Physical Exam Vital Signs Vital Signs - First Documented 11/14/19 11:36 Temp 36.6 Pulse 70 Resp 16 B/P (MAP) 130/87 (101) Pulse Ox 97 O2 Delivery Room Air Height, Weight, BMI Height: 5'7.00" Weight: 280lbs. oz. 127.999078tc; 46.00 BMI Method:Stated General Appearance: WD/WN, no apparent distress Eyes: bilateral eye normal inspection, bilateral eye PERRL, bilateral eye EOMI Ears: bilateral ear auricle normal, bilateral ear canal normal, bilateral ear TM normal Mouth/Throat: mandibular swelling (left-sided quarter sized area of swelling) Neck: non-tender, full range of motion; No lymphadenopathy (R), No lym phadenopathy (L) Respiratory: no respiratory distress, no accessory muscle use Neurologic/Psychiatric: alert, normal mood/affect Skin: normal color, warm/dry Progress/Results/Core Measures Results/Orders Vital Signs/I&O 11/14/19 11:36 Temp 36.6 Pulse 70 Resp 16 B/P (MAP) 130/87 (101) Pulse Ox 97 O2 Delivery Room Air Blood Pressure Mean: 101 Departure Impression Primary Impression: Odontogenic infection of jaw Disposition: HOME, SELF-CARE Condition: Stable Departure-Patient Inst. Decision time for Depature: 11:52 Referrals: JOSE ROBERTO RIVAS DO (PCP/Family) Primary Care Physician Patient Instructions: Dental Pain (DC) Add. Discharge Instructions: 1. Return to ER for any concerns 2. Follow-up with your doctor next week 3. Call your dentist JASSON, even if they can only remove a few teeth this may help prevent future abscesses All discharge instructions reviewed with patient and/or family. Voiced unde rstanding. Scripts Hydrocodone/Acetaminophen ([place] 5-325 Tablet) 1 Each Tablet 1 TAB PO Q4-6HR for Pain MDD 10 TABS for 7 Days, #10 TAB Do not fill unless amoxicillin is also filled Prov: CHAR VIDAL APRN 11/14/19 Amoxicillin (Amoxicillin) 500 Mg Capsule 500 MG PO TID, #21 CAP 0 Refills Prov: CHAR VIDAL APRN 11/14/19 CHAR VIDAL APRN Nov 14, 2019 11:50
[2019-11-14] MEDS ORDERED: AMOX500C2 PO (11:53)
[2019-11-14] MEDS ORDERED: HYDR-4226 PO (11:53)
[2019-11-14 11:58] VITALS: BP 130/87
== END 2019-11-14 11:58 | disposition home or self-care (01) ==
LOC: EDUNIT# 11:35 → ER 11:36
DX: M27.2 Inflammatory conditions of jaws (principal)
CPT/HCPCS: 99282